=== PATIENT | male | born 1990 | race Caucasian/White ===

== ENCOUNTER 2017-09-06 17:54 | Emergency (ER) | payer MEDICAID, OTHER ==
[~2017-09-06] VITALS: Ht 162.6 cm; Wt 60.0 kg
[2017-09-06 17:55] VITALS: BP 138/88
== END 2017-09-06 20:25 | disposition left against medical advice (07) ==
LOC: ER 20:10
DX: R10.9 Unspecified abdominal pain (principal); Z53.21 Procedure and treatment not carried out due to patient leaving prior to being seen by health care provider

== ENCOUNTER 2017-09-09 14:51 | Emergency (ER) | payer MEDICAID ==
[~2017-09-09] VITALS: Ht 165.1 cm; Wt 68.0 kg
[2017-09-09 15:33] VITALS: BP 150/87
== END 2017-09-09 20:00 | disposition left against medical advice (07) ==
LOC: ER 15:27
DX: R10.9 Unspecified abdominal pain (principal); Z53.21 Procedure and treatment not carried out due to patient leaving prior to being seen by health care provider

== ENCOUNTER 2022-11-18 17:11 | Emergency (ER) | payer MEDICAID | END 2022-11-18 18:29 | disposition left against medical advice (07) | LOC: ER 17:11 | DX: Z53.21 Procedure and treatment not carried out due to patient leaving prior to being seen by health care provider (principal) | CPT/HCPCS: 99281 ==